=== PATIENT | male | born 1935 | race Caucasian/White ===

== ENCOUNTER 2019-10-12 18:39 | Inpatient (IN) | payer MEDICARE ==
[~2019-10-12 18:39] MED LIST: Iopamidol-370 76% 500 ML 1 ML ONE
[2019-10-12 20:27] LABS: Bacteria/HPF None Seen HPF (None Seen); Bilirubin Negative (Negative); Blood, Urine Negative (Negative); Clarity Clear (Clear); Glucose, Urine (Dipstick) Normal (Negative); Leukocyte Negative Leu/uL (Negative); Nitrite Negative (Negative); Protein, Urine (Dipstick) 50 mg/dL (Neg-Trace); RBC/HPF 0-3 HPF (0-3); Squamous Epithelial None Seen HPF (0-3); Urobilinogen Normal mg/dL (Less than 2); WBC/HPF 0-3 HPF (0-3)
[2019-10-12 20:37] LABS: #Eosinphils 0.2 thou/uL (0.0-0.7); #Lymphocytes 1.5 thou/uL (1.20-3.40); #Monocytes 0.9 thou/uL (0.11-0.59); #Neutrophils 8.5 thou/uL (1.40-6.50); %Basophils 0.2 % (0.0-1.0); %Eosinophils 2.2 % (0.0-10.0); %Lymphocytes 13.5 % (21.0-51.0); %Monocytes 7.7 % (0.0-10.0); %Neutrophils 76.4 % (42.0-75.0); Mean Corpuscular HGB CONC 35.3 g/dL (32.0-36.0); Mean Corpuscular Hemoglobin 32.2 pg (27.0-31.0); Mean Corpuscular Volume 91.3 fL (78.0-98.0); Mean Platelet Volume 6.5 fL (7.4-10.4); Platelet Count 249 thou/uL (130-400); RBC Distribution Width 11.6 % (11.5-14.5); Red Blood Cell (RBC) Count 4.04 mill/uL (4.70-6.10); White Blood Cell (WBC) Count 11.1 thou/uL (4.8-10.8)
[2019-10-12 21:00] LABS: ALT (SGPT) 12 U/L (8-55); AST (SGOT) 23 U/L (5-34); Albumin 4.4 g/dL (3.4-4.8); Alkaline Phosphatase 78 U/L (40-110); Anion Gap 12 mmol/L (10-20); BUN (Urea Nitrogen) 25 mg/dL (8.4-25.7); Bilirubin, Total 0.4 mg/dL (0.2-1.2); Calc. Creatinine Clearance 0 mL/min (70-130); Calcium 10.2 mg/dL (7.8-10.44); Carbon Dioxide 24 mmol/L (23-31); Chloride 103 mmol/L (98-107); Estimated GFR-MDRD 38; Globulin 3.4 g/dL (2.4-3.5); Glucose 109 mg/dL (83-110); Lipase 37 U/L (8-78); Potassium 4.1 mmol/L (3.5-5.1); Protein, Total 7.8 g/dL (5.8-8.1); Sodium 135 mmol/L (136-145)
[2019-10-12] MEDS ORDERED: Ondansetron PF 4 MG/2 ML Vial ONE ×2 (21:16→21:26)
[2019-10-12] MEDS ORDERED: Morphine 4 MG/ML VIAL ONE (21:16)
--- NOTE | 2019-10-12 21:47 | CT ---
CT OF THE ABDOMEN AND PELVIS WITH IV CONTRAST INDICATION: 84-year-old male with abdominal pain, nausea, vomiting and diarrhea COMPARISON: None FINDINGS: ABDOMEN: Lung bases: Clear Liver: There is a nodular contour to the liver suspicious for changes of cirrhosis Gallbladder: There are layered gallstones within a mildly contracted gallbladder Pancreas: Normal. Adrenal glands: Normal. Spleen: Normal. Kidneys and ureters: Normal. No hydronephrosis. Vasculature: There are moderate vascular calcifications seen involving the visualized vasculature. Lymph nodes:No lymphadenopathy. Free fluid in abdomen:No free fluid is evident. PELVIS: Small and large bowel: There is colonic diverticula and wall thickening involving the sigmoid colon. No drainable fluid collection is evident. Appendix:Not demonstrated Bladder: Normal. Rectal and perirectal soft tissues:Normal. Reproductive structures: Prostate is mildly enlarged measuring 4.9 cm. Free fluid in pelvis: No free fluid is evident. Lymphadenopathy pelvis: No lymphadenopathy is evident. Osseous structures: There are scattered sclerotic lesions involving the lumbar spine and pelvis suspi cious for osseous metastatic disease. There is scattered degenerative and osteoarthritic changes. Soft tissues:Normal. IMPRESSION: 1. Noncomplicated sigmoid colonic diverticulitis. Recommend appropriate colonic screening after mian ment of the patient's acute symptoms. 2. Numerous scattered small sclerotic lesions involving the lumbar spine and pelvis. The largest is s een within the right acetabulum measuring 9 mm. Whole body bone scan is recommended. Metastatic disease of the osseous structures is of concern. 3. Nodular contour of the liver suspicious for cirrhosis. 4. Cholelithiasis. 5. Prostate enlargement
[2019-10-12] MEDS ORDERED: Piperacillin/Tazobactam 3.375 GM VIAL ONE (22:56)
[2019-10-13] MEDS ORDERED: Dextrose 5 %-0.45 % NaCl 1,000 ML IV SCH (02:15)
[2019-10-13] MEDS ORDERED: Acetaminophen 325 MG TAB PO PRN ×2 (02:30→09:42)
[2019-10-13] MEDS ORDERED: Ondansetron PF 4 MG/2 ML Vial IVP PRN (02:30)
[2019-10-13] MEDS ORDERED: Ondansetron ODT 4 MG TAB SL PRN (02:30)
[2019-10-13] MEDS ORDERED: HYDROcodone/Acetaminophen 5/325 mg Tablet PO PRN ×2 (02:30)
[2019-10-13] MEDS ORDERED: Morphine 2 MG/ML SYRINGE SLOW IVP PRN (02:31)
[2019-10-13] MEDS: metroNIDAZOLE 500 MG in Premix Bag 1 BAG IVPB SCH ×3 (05:06→21:06)
[2019-10-13] MEDS: Cefepime 2 GM in Sodium Chloride 0.9% 100 ML IVPB SCH ×2 (07:45→20:16)
[2019-10-13] MEDS: Sodium Chloride 0.9% 1,000 ML IV SCH ×2 (10:05→20:16)
[2019-10-13] MEDS ORDERED: Iopamidol-370 76% 500 ML 1 ML ONE (11:20)
--- NOTE | 2019-10-13 11:56 | HP ---
PRIMARY CARE PROVIDER: None. CHIEF COMPLAINT: Abdominal pain. HISTORY OF PRESENT ILLNESS: Mr. Uriarte is a pleasant 84-year-old gentleman, who was seen at [facility] on October 13, 2019. He reports that he has had pain in the left lower side of the abdomen for 10 years. He was diagnosed with diverticulitis. He reports occasional flare-ups of the pain. He describes chronic pain with superimposed pain during acute flare-ups. He reports that he was self medicating with ampicillin. He reports feeling warm. The pain appears to be sharp, 10/10 at its worst, nonradiating. Yesterday, he was nauseous, but did not vomit. He also reports feeling lightheaded. He reports one episode of loose stools yesterday morning. He presented to the emergency room because of the above symptoms. REVIEW OF SYSTEMS: All systems were reviewed and found to be negative except for the pertinent positives mentioned above. PAST MEDICAL HISTORY: Coronary artery disease, diverticulitis. PAST SURGICAL HISTORY: Aortic valve surgery and coronary artery bypass graft x2. SOCIAL HISTORY: The patient denies tobacco use, alcohol use, or recreational drug use. FAMILY HISTORY: No family history of premature coronary artery disease. ALLERGIES: ANTIHISTAMINES. CURRENT MEDICATIONS: None. PHYSICAL EXAMINATION: GENERAL: On examination, Mr. Uriarte is awake and alert, not in acute distress. VITAL SIGNS: Blood pressure is 127/67, pulse 83, respiratory rate 18, and oxygen saturation 93% on room air. He is afebrile. EYES: No scleral icterus, no conjunctival pallor. ENT: Dry mucosal membranes. No oropharyngeal erythema or exudates. NECK: Supple, nontender, trachea is midline. RESPIRATORY: Accessory muscles of breathing are not active. Chest wall movements are symmetric bilaterally. LUNGS: Clear to auscultation without wheeze, rhonchi, or crepitations. CARDIOVASCULAR: S1 and S2 are heard, regular. Peripheral pulses palpable. ABDOMEN: Soft, nontender, bowel sounds are heard. NEUROLOGIC: Cranial nerves 2 through 12 are intact. SKIN: No rashes. LYMPHATIC: No cervical lymphadenopathy. PSYCHIATRIC: Normal mood, normal affect, the patient is oriented to person, place, and time. LABORATORY DATA: Mr. Uriarte's labs and investigations were reviewed. He has leukocytosis with 11,100 white cells, of which 76% are neutrophils. He has normocytic anemia with hemoglobin of 13, normal platelet count, mildly decreased sodium of 135, elevated creatinine of 1.75, otherwise normal comprehensive metabolic profile, normal lipase, and urinalysis that is positive for protein. He had CT scan of the abdomen and pelvis, which showed noncomplicated sigmoid colonic diverticulitis. He had numerous scattered small sclerotic lesions involving the lumbar spine and pelvis. He had nodular contour of the liver suspicious for cirrhosis. He had prostate enlargement and cholelithiasis. ASSESSMENT AND PLAN: Mr. Uriarte is a pleasant 84-year-old gentleman, who was seen at [facility] on October 13, 2019. His problem list includes: 1. Diverticulitis: Mr. Uriarte is presenting with diverticulitis on the sigmoid colon, uncomplicated. He has been started on cefepime and metronidazole, which I will continue. We will also consult Gastroenterology Service for opinion and help with management. 2. Sclerotic bone lesions: Etiology is unclear. He does have an enlarged prostate. We will check PSA level. Gastroenterology Service also being consulted in case Mr. Uriarte needs colonoscopy. 3. Chronic kidney disease: The patient appears to have chronic kidney disease. However, he also appears dehydrated. We will provide IV hydration and recheck his creatinine. 4. Coronary artery disease: Appears to be stable, the patient does not have any chest pain. Many thanks for allowing me to participate in Mr. Uriarte's care. Please feel free to contact me with any questions or concerns. LEVEL OF RISK: Moderate. LEVEL OF COMPLEXITY: Moderate. Job ID: [id number]
[2019-10-13] MEDS: HYDROcodone/Acetaminophen 5/325 mg Tablet PO PRN ×2 (13:15→17:43)
[2019-10-13] MEDS: Heparin 5,000 UNITS/ML VIAL SC SCH ×2 (14:51→20:18)
--- NOTE | 2019-10-13 17:26 | CON ---
DATE OF CONSULTATION: 10/13/2019 REQUESTING PHYSICIAN: Chip Farmer MD REASON FOR CONSULTATION: Diverticulitis. HISTORY OF PRESENT ILLNESS: Akil Uriarte is a very pleasant 84-year-old man with a history of aortic valve replacement and coronary artery bypass graft. He also reports a history of recurrent diverticulitis episodes through the years. He says that about seven or eight years ago he underwent colonoscopy elsewhere with findings of severe diverticular disease, and actually had surgical consultation recommended even at that time. The patient deferred this, and did well for several years, but now for the past few years, he reports he has been having chronic intermittent episodes of left lower quadrant pain. This typically will occur for just one or two days at a time. He will manage it at home by going on a liquid diet and sometimes self treat with ampicillin. The pain has never gotten really severe until this episode. He says that about 3 days ago, he started again having significant left lower quadrant pain, but this escalated and started to involve the whole lower abdomen. He started having low-grade fevers at home and then had onset of nausea as well. This prompted his presentation and admission last night. CT scan demonstrated uncomplicated sigmoid diverticulitis. There were also multiple sclerotic lesions in the lumbar spine and pelvis of indeterminate origin but worrisome for possible metastatic disease. Prostate is enlarged and PSA is elevated to 48.68. He has been receiving IV cefepime and metronidazole on the floor. Abdominal pain is improving a bit and nausea has resolved. For now, he is tolerating a liquid diet. REVIEW OF SYSTEMS: Full review of systems including constitutional, head, eyes, ears, nose, throat, GI, , cardiovascular, respiratory, musculoskeletal, and neurologic systems are negative except as noted in the HPI. PAST MEDICAL HISTORY: Coronary artery disease, CABG x2, aortic valve replacement with porcine valve, recurrent diverticulitis, and last colonoscopy 7 to 8 years ago showing diverticular disease, performed elsewhere. ALLERGIES: ANTIHISTAMINE. OUTPATIENT MEDICATIONS: Florastor. FAMILY HISTORY: No known family history of GI malignancy. SOCIAL HISTORY: No tobacco, alcohol, or drug use. PHYSICAL EXAMINATION: VITAL SIGNS: Temperature 100.0 degrees Fahrenheit, pulse 91, blood pressure 135/68, and 93% oxygen saturation on room air. GENERAL: An 84-year-old man, sitting up in bed comfortably, in no distress. SKIN: No jaundice. No rashes were palpable. HEENT: Eyes, no scleral icterus. Extraocular movements intact. ENT, mucous membranes moist. No oral lesions. LYMPH: No submandibular or supraclavicular lymphadenopathy. Thyroid, nontender to palpation. HEART: Regular rate and rhythm. LUNGS: Clear to auscultation bilaterally. ABDOMEN: Bowel sounds are present. The abdomen is soft. Tender to palpation in the lower abdomen, but no guarding or rebound tenderness. EXTREMITIES: No peripheral edema. VESSELS: Radial pulses 2+ bilaterally. NEURO: Cranial nerves 2 through 12 intact bilaterally. No focal deficits. LABORATORY STUDIES: WBC 11.1, hemoglobin 13.0, and platelets 249. BUN 25 and creatinine 1.75. LFTs all normal with total bilirubin 0.4, alkaline phosphatase 78, AST 23, ALT 12, albumin 4.4, lipase only 37, and calcium 10.2. Urinalysis negative. PSA is elevated to 48.68. IMAGING STUDIES: CT of the abdomen and pelvis demonstrated uncomplicated sigmoid diverticulitis with diverticula seen in this area as well as a wall thickening. There is no evidence of any abscess or free fluid. There are multiple sclerotic lesions in the lumbar spine and pelvis suspicious for osseous metastatic disease. Prostate is enlarged to 4.9 cm. There is cholelithiasis as well as a nodular contour to the liver. ASSESSMENT AND PLAN: 1. Sigmoid diverticulitis, recurrent, uncomplicated. The patient was told that he had severe diverticular disease even 7 to 8 years ago at the time of his last colonoscopy elsewhere. His presentation at this time is consistent with a more severe yet uncomplicated attack. Agree with continuing the IV antibiotics for now. Diet can be advanced as he tolerates as symptoms improve. Anticipate, he will probably need a seven-day total course of antibiotics. I discussed with the patient that he will need a followup colonoscopy on an outpatient basis, about 1 month after this flare is resolved. We will get this scheduled to my office. 2. Elevated PSA. 3. Sclerotic bone lesions to the lumbar spine and pelvis. These findings are somewhat concerning for possible prostate malignancy. His brother had prostate cancer. This is all incidental to his acute presentation. I would recommend urologic consultation or referral for this. Thank you for the consultation. Please call anytime with questions or concerns. Job ID: [id number]
--- NOTE | 2019-10-13 23:01 | CT ---
CT OF THE CHEST WITH IV CONTRAST INDICATION: Evaluate for malignancy COMPARISON: CT the abdomen and pelvis with contrast dated October 12, 2019 FINDINGS: CHEST: Lungs: No suspicious pulmonary nodule is evident. There is some mild peripheral interstitial fibrotic change present. There is subsegmental volume loss within both lower lobes. There is mild bronchiectasis within both lower lobes. Pleural space: There are calcified pleural plaques seen within the left hemithorax which may be rela mono to prior pleurodesis. Mediastinum: Few lymph nodes are seen within the anterior mediastinum. No pathologically enlarged. Th ere is a precarinal lymph node measuring 1.5 cm. There is subcarinal lymph node measuring 1.1 cm. There is an aortic valvular prosthesis. Upper abdomen:Nodular contour to the liver. Cholelithiasis. Osseous structures: There are scattered sclerotic lesions seen within the thoracic and lumbar spine. Small sclerotic lesion seen within posterior right sixth rib on image 22 series 2 There is scattered degenerative and osteoarthritic changes. Soft tissues:Normal. IMPRESSION: 1. No evidence of pulmonary metastatic disease or primary lung malignancy. 2. Nonspecific mildly prominent middle mediastinal lymph nodes. 3. Sclerotic lesions of the thoracolumbar spine and right sixth rib remain suspicious for osseous met astatic disease. Whole body bone scan is recommended for additional characterization. 4. Mild peripheral interstitial fibrosis of the lungs with mild bronchiectasis. Findings may reflect sequela of underlying interstitial lung disease. 5. Calcified pleural plaques the left hemithorax may be related to prior pleurodesis. Asbestos-relate d pleural disease is felt to be less likely.
[2019-10-14] MEDS: metroNIDAZOLE 500 MG in Premix Bag 1 BAG IVPB SCH ×3 (05:16→21:38)
[2019-10-14] MEDS: Sodium Chloride 0.9% 1,000 ML IV SCH ×2 (05:16→16:15)
[2019-10-14 06:12] LABS: #Eosinphils 0.1 thou/uL (0.0-0.7); #Monocytes 0.8 thou/uL (0.11-0.59); #Neutrophils 12.3 thou/uL (1.40-6.50); %Eosinophils 0.6 % (0.0-10.0); %Lymphocytes 13.2 % (21.0-51.0); %Monocytes 5.4 % (0.0-10.0); %Neutrophils 80.8 % (42.0-75.0); Hemoglobin 12.4 g/dL (14.0-18.0); Mean Corpuscular HGB CONC 33.9 g/dL (32.0-36.0); Mean Corpuscular Hemoglobin 31.7 pg (27.0-31.0); Mean Corpuscular Volume 93.4 fL (78.0-98.0); Mean Platelet Volume 6.9 fL (7.4-10.4); Platelet Count 221 thou/uL (130-400); RBC Distribution Width 11.9 % (11.5-14.5); Red Blood Cell (RBC) Count 3.92 mill/uL (4.70-6.10); White Blood Cell (WBC) Count 15.2 thou/uL (4.8-10.8)
[2019-10-14 06:29] LABS: Anion Gap 12 mmol/L (10-20); BUN (Urea Nitrogen) 22 mg/dL (8.4-25.7); Calc. Creatinine Clearance 31 mL/min (70-130); Carbon Dioxide 19 mmol/L (23-31); Chloride 108 mmol/L (98-107); Estimated GFR-MDRD 37; Glucose 92 mg/dL (83-110); Potassium 4.2 mmol/L (3.5-5.1); Sodium 135 mmol/L (136-145)
[2019-10-14] MEDS: Heparin 5,000 UNITS/ML VIAL SC SCH ×2 (08:18→15:07)
[2019-10-14] MEDS: Cefepime 2 GM in Sodium Chloride 0.9% 100 ML IVPB SCH ×2 (08:18→20:49)
--- NOTE | 2019-10-14 10:04 | PRG ---
DATE OF SERVICE: 10/14/2019 SUBJECTIVE: Mr. Uriarte is feeling quite a bit better. He still has some soreness to the left side of the abdomen, but the severe pain has gone. No nausea. He is tolerating his diet. OBJECTIVE: VITAL SIGNS: Temperature 98.9, pulse 89, blood pressure 127/66, and 93% oxygen saturation on room air. GENERAL: No acute distress. HEART: Regular rate and rhythm. LUNGS: Clear to auscultation bilaterally. ABDOMEN: Tender to palpation in the left lower quadrant, but no guarding or rebound tenderness. EXTREMITIES: No peripheral edema. LABORATORY STUDIES: WBC is 15.2, hemoglobin 12.4, platelets 221. Sodium 135, potassium 4.2, BUN 22, creatinine 1.78, and PSA 48.68. ASSESSMENT AND PLAN: 1. Sigmoid diverticulitis, uncomplicated, recurrent. The patient has had some clinical improvement over the past day on the IV antibiotics. He is tolerating his diet. From a diverticulitis standpoint, if he is continuing to feel well and does well with lunch, he could potentially be discharged from the hospital later today or tomorrow. We would recommend he complete a 7-day course of oral antibiotics, switch to ciprofloxacin and Flagyl p.o. on hospital discharge. 2. Elevated PSA. 3. Sclerotic bone lesions. This is somewhat concerning for prostate cancer. I see a nuclear medicine bone scan is in process. Further workup per the primary service. Please call back anytime with questions or concerns. We will plan to see him for outpatient colonoscopy in the next 4 to 6 weeks. Job ID: [id number]
--- NOTE | 2019-10-14 15:05 | NM ---
Radionucleotide bone scan HISTORY: Sclerotic bone lesions. Metastatic disease. FINDINGS: Subtle areas of slightly increased uptake involves the lateral aspect of the left eighth ri b and the T7 vertebral body. Subtle sclerotic lesions on recent corresponding CT scan. Focal area of increased uptake also overlies the right side of the skull. IMPRESSION: Metastatic involvement of the skull, left ribs, and thoracic spine. Other lesions seen on recent CT scans are not demonstrable on the current bone scan.
[2019-10-14] MEDS: Ondansetron PF 4 MG/2 ML Vial SLOW IVP PRN (17:09)
--- NOTE | 2019-10-14 17:39 | PDOC.HOSPP ---
- Subjective Encounter Date: 10/14/19 Encounter Time: 10:20 Subjective: Pt seen for followup re: diverticulitis. Feels better. No chest pain or shortness of breath. Tolerating diet. - Objective Vital Signs & Weight: Vital Signs (12 hours) Temp Pulse Resp BP Pulse Ox 10/14/19 15:58 99.3 F 104 H 20 150/74 H 91 L 10/14/19 11:29 98.6 F 93 20 113/58 L 91 L 10/14/19 08:00 93 L 10/14/19 07:25 98.9 F 89 20 127/66 93 L Weight Admit Weight 150 lb Weight 150 lb I&O: 10/13/19 10/14/19 10/15/19 06:59 06:59 06:59 Intake Total 2655 Output Total 500 Balance 2155 Result Diagrams: 10/14/19 05:41 10/14/19 05:41 Additional Labs: Labs and MARs reviewed by me Hospitalist ROS - Review of Systems Cardiovascular: denies: chest pain, palpitations, orthopnea, paroxysmal noc. dyspnea, edema, light headedness Gastrointestinal: denies: nausea, vomiting, abdominal pain, diarrhea, constipation, melena, hematochezia - Medication Medications: Active Medications Generic Name Dose Route Start Last Admin Trade Name Freq PRN Reason Stop Dose Admin Hydrocodone Bitart/Acetaminophen 1 tab 10/13/19 09:42 10/13/19 17:43 [place] 5/325 PO 1 tab Q4H PRN Administration Moderate Pain (4-6) Heparin Sodium (Porcine) 5,000 units 10/13/19 15:00 10/14/19 15:07 Heparin SC 5,000 units TID RICHARD Administration Cefepime HCl 2 gm/ Sodium 100 mls @ 200 mls/hr 10/13/19 09:00 10/14/19 08:18 Chloride IVPB 100 mls Q12HR RICHARD Administration Metronidazole 500 mg/ Device 100 mls @ 100 mls/hr 10/13/19 06:00 10/14/19 15: 07 IVPB 100 mls Q8HR RICHARD Administration Ondansetron HCl 4 mg 10/14/19 16:50 10/14/19 17:09 Zofran SLOW IVP 4 mg Q6H PRN Administration Nausea/Vomiting Sodium Chloride 10 ml 10/13/19 09:00 10/14/19 08:19 Flush - Normal Saline IVF Not Given Q12HR RICHARD - Exam General Appearance: NAD Eye: anicteric sclera ENT: moist mucosa Neck: supple Heart: RRR, no rubs Respiratory: CTAB, no wheezes Gastrointestinal: soft, non-tender Extremities: no cyanosis Musculoskeletal: normal tone, normal strength Psychiatric: normal affect, normal behavior Hosp A/P (1) Diverticulitis Code(s): K57.92 - DVTRCLI OF INTEST, PART UNSP, W/O PERF OR ABSCESS W/O BLEED Status: Acute (2) Prostate enlargement Code(s): N40.0 - BENIGN PROSTATIC HYPERPLASIA WITHOUT LOWER URINRY TRACT SYMP Status: Acute (3) Bone lesion Code(s): M89.9 - DISORDER OF BONE, UNSPECIFIED Status: Acute (4) Elevated PSA Code(s): R97.20 - ELEVATED PROSTATE SPECIFIC ANTIGEN [PSA] Status: Acute (5) Chronic kidney disease, stage 3 Code(s): N18.3 - CHRONIC KIDNEY DISEASE, STAGE 3 (MODERATE) Status: Chronic (6) CAD (coronary artery disease) Code(s): I25.10 - ATHSCL HEART DISEASE OF [place] CORONARY ARTERY W/O ANG PCTRS Status: Chronic - Plan continue antibiotics, out of bed/ambulate Pt improving in terms of diverticulitis. Pt's presentation is concerning re: metastatic prostate cancer with bome metastases. Consult urology. CAD and CKD stable.
--- NOTE | 2019-10-14 19:49 | CON ---
DATE OF CONSULTATION: 10/14/2019 REASON FOR CONSULTATION: Possible prostate cancer. HISTORY: Mr. Uriarte is an 84-year-old gentleman, who presented to the hospital at [place] on 10/12/2019, for diverticulitis. As part of his workup, CT scan was performed. This demonstrated some sclerotic lesions. He is now undergoing bone scan, lesions are consistent with prostate cancer. The patient had a PSA test performed and PSA result is 48.7. He denies any prior urologic history. He has not had PSA or prostate testing in several years. PAST MEDICAL HISTORY: Coronary artery disease, history of diverticulitis. PAST SURGICAL HISTORY: Aortic valve surgery, coronary artery bypass graft. SOCIAL HISTORY: He is a nonsmoker. Denies excessive alcohol use. REVIEW OF SYSTEMS: RESPIRATORY: Denies any shortness of breath or wheezing. CARDIOVASCULAR: Denies chest pain or palpitations. GASTROINTESTINAL: Presented with abdominal pain, but this is improving. GENERAL: Fever has improved since admission. UROLOGIC: He has some intermittent weak stream and some postvoid dribbling, but otherwise very little in the way of voiding symptoms. PHYSICAL EXAMINATION: GENERAL: He is awake and alert. He appears younger than his stated age. VITAL SIGNS: Blood pressure 128/82, pulse 82, respiratory rate 18, and O2 saturation 93% on room air. HEENT: Normocephalic and atraumatic. NECK: Supple. No masses. CHEST: Clear to auscultation. CARDIOVASCULAR: No murmurs auscultated. EXTREMITIES: No edema. RECTUM: Digital rectal exam, 40 g prostate. Induration bilaterally. IMPRESSION: Elevated PSA to 48.7, lesions on CT scan consistent with bone metastasis, and bone scan pending. I have recommended a prostate needle biopsy. This can be performed in our office to make arrangements for him to come to the office for biopsy after his discharge from the hospital. If pathologic confirmation of prostate cancer is confirmed, then initiation of hormone therapy will be recommended. PLAN: We will arrange for a prostate needle biopsy in our office after discharge. Job ID: [id number]
[2019-10-14] MEDS ORDERED: Lidocaine 2% Viscous Solution 10 ML, Aluminum & Magnesium Hydroxide 30 ML SSW SCH (20:30)
[2019-10-14] MEDS ORDERED: Famotidine/PF 20 mg/2ml Vial SLOW IVP SCH (21:00)
[2019-10-15] MEDS ORDERED: guaiFENesin 200 MG TAB PO PRN (01:22)
[2019-10-15] MEDS: metroNIDAZOLE 500 MG in Premix Bag 1 BAG IVPB SCH ×3 (05:23→21:08)
[2019-10-15 05:59] LABS: #Lymphocytes 0.6 thou/uL (1.20-3.40); #Monocytes 0.8 thou/uL (0.11-0.59); #Neutrophils 18.6 thou/uL (1.40-6.50); %Neutrophils 93.1 % (42.0-75.0); Hemoglobin 11.5 g/dL (14.0-18.0); Mean Corpuscular HGB CONC 34.5 g/dL (32.0-36.0); Mean Corpuscular Volume 92.7 fL (78.0-98.0); Mean Platelet Volume 6.8 fL (7.4-10.4); Platelet Count 222 thou/uL (130-400); RBC Distribution Width 11.8 % (11.5-14.5); Red Blood Cell (RBC) Count 3.58 mill/uL (4.70-6.10); White Blood Cell (WBC) Count 19.9 thou/uL (4.8-10.8)
[2019-10-15 06:18] LABS: Anion Gap 17 mmol/L (10-20); BUN (Urea Nitrogen) 32 mg/dL (8.4-25.7); Calc. Creatinine Clearance 28 mL/min (70-130); Calcium 8.6 mg/dL (7.8-10.44); Carbon Dioxide 17 mmol/L (23-31); Chloride 106 mmol/L (98-107); Estimated GFR-MDRD 32; Glucose 141 mg/dL (83-110); Potassium 4.7 mmol/L (3.5-5.1); Sodium 135 mmol/L (136-145)
[2019-10-15 07:53] VITALS: BP 135/71
--- NOTE | 2019-10-15 07:59 | RAD ---
Portable upright frontal chest radiograph: 10/15/2019 COMPARISON: None HISTORY: Cough and shortness of breath FINDINGS: Midline sternotomy wires and mediastinal clips are present. No pneumothorax is seen. Biapic al pleural thickening and associated calcification seen. Pulmonary vascular congestion. There is extensive interstitial and alveolar opacity in bilateral perihilar regions and both lung bas es with small associated bilateral pleural effusions. IMPRESSION: Small bilateral pleural effusions with pulmonary vascular congestion and bilateral perihi lar/bibasilar interstitial and alveolar opacity. Findings favor pulmonary edema. Infection or aspiration cannot be excluded. Follow-up to resolution advised.
[2019-10-15] MEDS: Cefepime 2 GM in Sodium Chloride 0.9% 100 ML IVPB SCH (08:11)
--- NOTE | 2019-10-15 09:11 | PRG ---
DATE OF SERVICE: 10/15/2019 SUBJECTIVE: The patient has not had fever, but overall does not feel much better. OBJECTIVE: VITAL SIGNS: Temperature 97.5, pulse 106, O2 saturation 90%, and blood pressure 135/71. ABDOMEN: Soft, nontender. No palpable masses. Nuclear medicine scan positive for bone metastases. IMPRESSION: Presumptive prostate cancer, but he needs biopsy before Lupron can be given for hormone therapy. He will be started on Casodex today. He will need a followup appointment for biopsy and will need to be on Casodex for at least a week before Lupron can be safely given. PLAN: 1. Prostate biopsy after discharge in office. 2. Begin Casodex. Job ID: [id number]
[2019-10-15] MEDS ORDERED: Furosemide 40 MG/4 ML VIAL ONE (09:18)
[2019-10-15] MEDS ORDERED: Furosemide 40 MG/4 ML VIAL SLOW IVP SCH (09:30)
[2019-10-15] MEDS ORDERED: Polyethylene Glycol 3350 17 GM Packet PO PRN (09:36)
[2019-10-15] MEDS ORDERED: Pharmacy to Dose: CEFEPIME IVPB PRN (10:13)
[2019-10-15 11:53] LABS: Troponin I 9.307 ng/mL (< 0.028)
[2019-10-15] MEDS ORDERED: Furosemide 100 MG/10 ML VIAL SLOW IVP SCH ×2 (13:30→22:00)
[2019-10-15] MEDS: Bicalutamide 50 MG TAB PO SCH (13:36)
[2019-10-15] MEDS ORDERED: Nitroglycerin 50 MG/250 ML BOT 250 ML ONE (14:43)
[2019-10-15] MEDS ORDERED: Aspirin 300 MG Suppository PR SCH (15:00)
[2019-10-15] MEDS ORDERED: Nitroglycerin 50 MG/250 ML BOT 250 ML IVPB SCH (15:00)
[2019-10-15] MEDS ORDERED: Enoxaparin Sodium 80 MG/0.8 ML SYRINGE SC SCH (15:00)
--- NOTE | 2019-10-15 17:14 | PRG ---
DATE OF SERVICE: 10/15/2019 SUBJECTIVE: Yesterday evening, Mr. Uriarte started having a lot of shortness of breath, cough. This morning, he was hypoxic and did not improve with diuretics. He was moved to the ICU and is now on BiPAP. Echocardiogram was performed and that report is not yet back. He was seen by Dr. Nguyen. There is concern for progressive aortic stenosis. His troponin is elevated to 9. The patient denies any significant abdominal pain at this time and had been tolerating his diet prior to being placed on BiPAP. OBJECTIVE: VITAL SIGNS: Temperature 97.5, heart rate 122, blood pressure 159/96, and 95% oxygen saturation on BiPAP. GENERAL: In mild respiratory distress, tolerating BiPAP. HEART: Regular tachycardia. LUNGS: Bibasilar crackles. He is tachypneic. ABDOMEN: Bowel sounds present. Soft and nontender to palpation. EXTREMITIES: No peripheral edema. LABORATORY STUDIES: WBC up to 19.9, hemoglobin 11.5, and platelets 222. Sodium 135, potassium 4.7, BUN 32, creatinine 1.99, and glucose 141. Troponin 9.3 and BNP 3605.4. ASSESSMENT AND PLAN: 1. Acute recurrent sigmoid diverticulitis, clinically improved. I would continue the antibiotics for a seven-day course. He will stay on IV antibiotics while inpatient. 2. Probable metastatic prostate cancer. The patient's bone scan showed osseous lesions throughout thoracic spine as well as skull. Note that, Urology has recommended prostate biopsy in an outpatient basis. 3. Acute congestive heart failure. 4. Elevated troponin. 5. Pulmonary edema, now on BiPAP. This is a new development over the past less than 24 hours. Follow up Cardiology recommendations. Due to this event, we may not necessarily be able to do followup colonoscopy in 1 month. GI will follow from a distance. Please call anytime with questions or concerns. Job ID: [id number]
[2019-10-15 17:27] LABS: Troponin I 11.462 ng/mL (< 0.028)
--- NOTE | 2019-10-15 17:28 | CON ---
DATE OF CONSULTATION: 10/15/2019 REASON FOR CONSULTATION: Congestive heart failure, left bundle-branch block, diverticulitis. HISTORY OF PRESENT ILLNESS: Mr. Uriarte is an 84-year-old gentleman. He came to the hospital complaining of abdominal discomfort and was found to have diverticulitis. The patient has been receiving antibiotics and fluid here. The patient started having increasing amounts of difficulty breathing last night. Finally, he came here to the intensive care unit after chest x-ray shows pulmonary edema. He has been transferred to the cardiac care unit. The patient remains critically ill here despite BiPAP and other medicines as will be outlined below. The patient is unable to give much history now. He has a BiPAP. He can only tell us with brief responses, if he tries to talk he becomes very short of breath and panicky. Therefore, the information is received from the chart as well as the brief answers from this gentleman, yes or no answers mostly. The patient is currently not having chest pain, but he is very short of breath. PAST MEDICAL HISTORY: 1. He had recurrent diverticulitis. 2. He has had bypass surgery and valve replacement, presumably aortic valve replacement in 2002 that was done in [place]. He indicates the last time he saw a high school library media specialist was several years ago. SOCIAL HISTORY: No alcohol or tobacco abuse. HOME MEDICATION: The only thing listed was Florastor. The patient is really unable to give any other history about that now. REVIEW OF SYSTEMS: Otherwise unreliable except difficulty breathing. He really cannot give a history currently. FAMILY HISTORY: No family history of premature coronary artery disease according to the chart. MEDICATIONS: According to the initial H and P, none. PHYSICAL EXAMINATION: GENERAL: This is a critically ill-appearing elderly gentleman. He is sitting up in about at 50-degree angle in order to breathe adequately. He has a BiPAP machine on. VITAL SIGNS: His blood pressure is 133/79, pulse 117 to 118 and sinus rhythm. HEENT: Eyes, sclerae are nonicteric. Mouth, mucous membranes are moist. NECK: Supple. No lymphadenopathy. LUNGS: He has rales at the mid lung mack. Expiratory wheezing. His respiratory rate has increased. CARDIAC: Normal S1, normal S2. He is tachycardic. I do not hear murmur, rub, or gallop. Heart sounds are somewhat distant. ABDOMEN: Soft and nontender. EXTREMITIES: Warm and dry. No clubbing or cyanosis. There is no significant edema. DIAGNOSTIC STUDIES: EKG reveals sinus tachycardia, left bundle-branch block. Chest x-ray shows severe pulmonary edema. PERTINENT LABORATORY DATA: Troponin is 9.307. BNP 3605. Creatinine is 1.99 with an estimated GFR of 32. ASSESSMENT: 1. Pulmonary edema. 2. Rtk-EE-tvgxrontq myocardial infarction. 3. Previous bypass surgery. 4. Previous valve replacement. 5. 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 6. Left bundle branch block, unknown chronicity. 7. Diverticulitis. 8. Appears to have metastatic prostate cancer based on increased PSA and bone scan. PLAN: 1. Continue intravenous diuretics. 2. We will start intravenous nitrates as he is not responding much to the diuretics. 3. Lovenox. 4. Echocardiogram. 5. Prognosis, guarded. 6. Aspirin will be given. The nurse is not talking to him now, but the possibility that he maybe intolerant or allergic to aspirin, we will check that prior to administration of aspirin. Job ID: [id number] [facility]
--- NOTE | 2019-10-15 18:24 | PDOC.HOSPP ---
- Subjective Encounter Date: 10/15/19 Encounter Time: 18:22 Subjective: Pt seen for followup re: NSTEMI. States he feels slightly better after starting BiPAP. - Objective Vital Signs & Weight: Vital Signs (12 hours) Temp Pulse Resp BP Pulse Ox 10/15/19 15:11 115 H 10/15/19 13:19 110 H 10/15/19 12:00 114 H 92 L 10/15/19 11:00 109 H 38 H 94 L 10/15/19 08:00 30 L 10/15/19 07:52 97.5 F L 106 H 20 135/71 90 L Weight Admit Weight 150 lb Weight 150 lb Most Recent Monitor Data Heart Rate from ECG 102 NIBP 90/60 NIBP BP-Mean 70 Respiration from ECG 29 SpO2 90 I&O: 10/14/19 10/15/19 10/16/19 06:59 06:59 06:59 Intake Total 2655 2610 400 Output Total 500 1000 920 Balance 2155 1610 -520 Result Diagrams: 10/15/19 05:39 10/15/19 05:38 Additional Labs: Labs and MARs reviewed by me EKG Reviewed by me: Yes (Tele: s. tach) Hospitalist ROS - Review of Systems Respiratory: reports: shortness of breath Cardiovascular: reports: orthopnea. denies: chest pain, palpitations, paroxysmal noc. dyspnea, edema, light headedness Gastrointestinal: denies: nausea, vomiting, abdominal pain, diarrhea, constipation, melena, hematochezia - Medication Medications: Active Medications Generic Name Dose Route Start Last Admin Trade Name Freq PRN Reason Stop Dose Admin Hydrocodone Bitart/Acetaminophen 1 tab 10/13/19 09:42 10/13/19 17:43 [place] 5/325 PO 1 tab Q4H PRN Administration Moderate Pain (4-6) Albuterol/Ipratropium 3 ml 10/15/19 07:00 10/15/19 13:19 Duoneb NEB 3 ml [id number] RICHARD Administration Bicalutamide 50 mg 10/15/19 09:00 10/15/19 13:36 Casodex PO 50 mg DAILY RICHARD Administration Guaifenesin 200 mg 10/15/19 01:22 10/15/19 02:01 Organ-I Nr PO 200 mg Q4H PRN Administration Congestion Metronidazole 500 mg/ Device 100 mls @ 100 mls/hr 10/13/19 06:00 10/15/19 13: 37 IVPB 100 mls Q8HR RICHARD Administration Nitroglycerin/Dextrose 250 mls @ 20 mls/hr 10/15/19 15:00 10/15/19 15:29 Nitroglycerin 50 Mg/250 Ml Bot IVPB 250 mls INF RICHARD Administration Protocol Ondansetron HCl 4 mg 10/14/19 16:50 10/14/19 17:09 Zofran SLOW IVP 4 mg Q6H PRN Administration Nausea/Vomiting Sodium Chloride 10 ml 10/13/19 09:00 10/15/19 08:11 Flush - Normal Saline IVF 10 ml Q12HR RICHARD Administration - Exam General Appearance: NAD Eye: anicteric sclera ENT: moist mucosa Neck: supple, JVD Heart - other findings: S1, S2, tachy, reg Respiratory - other findings: Rafael crackles Gastrointestinal: soft, non-tender Musculoskeletal: no muscle wasting Psychiatric: normal affect, normal behavior Hosp A/P (1) NSTEMI (non-ST elevated myocardial infarction) Code(s): I21.4 - NON-ST ELEVATION (NSTEMI) MYOCARDIAL INFARCTION Status: Acute (2) Acute respiratory failure with hypoxia Code(s): J96.01 - ACUTE RESPIRATORY FAILURE WITH HYPOXIA Status: Acute (3) Acute pulmonary edema Code(s): J81.0 - ACUTE PULMONARY EDEMA Status: Acute (4) Diverticulitis Code(s): K57.92 - DVTRCLI OF INTEST, PART UNSP, W/O PERF OR ABSCESS W/O BLEED Status: Acute (5) Prostate enlargement Code(s): N40.0 - BENIGN PROSTATIC HYPERPLASIA WITHOUT LOWER URINRY TRACT SYMP Status: Acute (6) Bone lesion Code(s): M89.9 - DISORDER OF BONE, UNSPECIFIED Status: Acute (7) Elevated PSA Code(s): R97.20 - ELEVATED PROSTATE SPECIFIC ANTIGEN [PSA] Status: Acute (8) Chronic kidney disease, stage 3 Code(s): N18.3 - CHRONIC KIDNEY DISEASE, STAGE 3 (MODERATE) Status: Chronic (9) CAD (coronary artery disease) Code(s): I25.10 - ATHSCL HEART DISEASE OF [place] CORONARY ARTERY W/O ANG PCTRS Status: Chronic - Plan Pt in flash pulmonary edema overnight. Administer furosemide. Pt received aspirin and therapeutic Lovenox. Trend troponin. Pt to follow with urologist as outpt for prostate biopsy. Cardiology, PCCM, GI and urology following. Discussed code status. Pt is DNAR.
--- NOTE | 2019-10-15 18:26 | CON ---
DATE OF CONSULTATION: 10/15/2019 SERVICE: Pulmonary Medicine. REASON FOR CONSULT: ICU patient. HISTORY OF PRESENT ILLNESS: The patient is an 84-year-old white male with past medical history significant for severe coronary artery disease. He presented to the hospital with acute onset of abdominal discomfort that was diagnosed as diverticulitis. He has put on appropriate antibiotics and tucked in on the floor. At that location, he was given some IV fluids. He started having onset of increasing difficulty breathing yesterday. Oxygen requirements started going up to the point where today, he was breathing very heavily. I was given a dose of Lasix and had a little bit of urine output. That being said, he continues to breathe quite heavily. He was brought to the ICU and initiated on BiPAP and I was contacted at that point. He indicates that his breathing has eased up a little bit since initiating BiPAP. We got a troponin on him, which was elevated at 9, he had significant EKG abnormalities. Cardiology consultation has been placed. He denies having any current fevers or chills. He is coughing up pink-tinged phlegm. His belly pain is significantly better. He did not have any chest discomfort, palpitations. PAST MEDICAL HISTORY: 1. Coronary artery disease, extensive. 2. Hypertension. PAST SURGICAL HISTORY: 1. Aortic valve surgery. 2. Coronary artery bypass graft x2 vessels. SOCIAL HISTORY: Negative for current tobacco, alcohol, or illicit drug use. He has no exposure to chemicals, dust, asbestos, or tuberculosis. FAMILY HISTORY: Noncontributory. ALLERGIES: ANTIHISTAMINE. MEDICATIONS: List of his inpatient medications was reviewed. No specific updates were made at this time. REVIEW OF SYSTEMS: General, head, ears, eyes, nose, throat, cardiovascular, respiratory, GI, , musculoskeletal, neurologic, and skin are negative except as mentioned in the HPI. PHYSICAL EXAMINATION: VITAL SIGNS: Afebrile, pulse 106, blood pressure 135/71, respirations 20, and saturation 94%, currently on 55% FiO2 and a PEEP of 6. GENERAL: The patient is awake and alert. He is in mild respiratory distress. HEENT: Normocephalic and atraumatic. Sclerae white. Conjunctivae pink. Oral mucosa is moist without lesions. LUNGS: Decent air entry. Crackles are present. There is no prolonged expiratory phase or wheezing appreciated. HEART: Tachycardic. Regular. ABDOMEN: Soft. Nontender. Bowel sounds are positive. MUSCULOSKELETAL: No cyanosis or clubbing. There is trace pitting in bilateral lower extremities. NEUROLOGIC: Grossly nonfocal. LABORATORY DATA: WBC 19.9, hemoglobin 11.5, and platelets 222,000. Creatinine 1.99 and gently uptrending. BUN 32, bicarb 17. Troponin 9.0 and BNP 3600. PSA is elevated. Liver function studies are unremarkable. Urinalysis is negative. IMAGIN. Chest x-ray demonstrates an interstitial edema throughout bilateral lung mack. Bilateral pleural effusions and pulmonary vascular congestion are also present. 2. Bone scan demonstrates metastatic involvement of the skull, left ribs, and thoracic spine. 3. CT of the abdomen and pelvis demonstrates noncomplicated sigmoid diverticulitis. Prostate enlargement. Nodular contour of the liver suspicious for cirrhosis. 4. CT of the chest demonstrates no evidence of pulmonary metastatic disease. Mediastinal lymph nodes are prominent. Sclerotic lesions are identified. Fibrotic lung changes are present with mild bronchiectasis. ASSESSMENT: 1. Acute hypoxic respiratory failure. 2. Non-ST elevation myocardial infarction. 3. Prostate cancer, suspected. 4. Diverticulitis. 5. Severe sepsis. DISCUSSION AND PLAN: Cardiology consultation has been placed. I have titrated BiPAP at bedside. If the patient requires additional help, he will likely require invasive ventilation. He is already got a dose of Lasix. We are going to continue to diurese him through time as tolerated. Pulmonary/Critical Care will continue to follow very closely in the ICU. 70 minutes have been devoted to this patient in various activities. I personally reviewed all imaging studies and laboratory data noted within this document. For fifty percent of this time, I was interacting with the patient at the bedside or coordinating care with the care team. For the remainder of the time I was immediately available to the patient in the hospital unit. Critical care time: 30 minutes. Job ID: [id number] [facility]TD[facility]
[2019-10-15] MEDS: Famotidine/PF 20 mg/2ml Vial SLOW IVP SCH (21:08)
[2019-10-15] MEDS: HYDROcodone/Acetaminophen 5/325 mg Tablet PO PRN (23:47)
[2019-10-16 03:42] LABS: #Lymphocytes 0.7 thou/uL (1.20-3.40); #Neutrophils 17.4 thou/uL (1.40-6.50); %Basophils 0.1 % (0.0-1.0); %Lymphocytes 3.7 % (21.0-51.0); %Monocytes 5.4 % (0.0-10.0); %Neutrophils 90.7 % (42.0-75.0); Hemoglobin 12.1 g/dL (14.0-18.0); Mean Corpuscular HGB CONC 34.7 g/dL (32.0-36.0); Mean Corpuscular Hemoglobin 32.7 pg (27.0-31.0); Mean Corpuscular Volume 94.2 fL (78.0-98.0); Mean Platelet Volume 7.2 fL (7.4-10.4); Platelet Count 252 thou/uL (130-400); Red Blood Cell (RBC) Count 3.71 mill/uL (4.70-6.10); White Blood Cell (WBC) Count 19.1 thou/uL (4.8-10.8)
[2019-10-16] MEDS: Ondansetron PF 4 MG/2 ML Vial SLOW IVP PRN (03:48)
[2019-10-16 04:11] LABS: Anion Gap 16 mmol/L (10-20); BUN (Urea Nitrogen) 45 mg/dL (8.4-25.7); Calc. Creatinine Clearance 23 mL/min (70-130); Calcium 8.8 mg/dL (7.8-10.44); Carbon Dioxide 15 mmol/L (23-31); Chloride 108 mmol/L (98-107); Estimated GFR-MDRD 26; Glucose 172 mg/dL (83-110); Potassium 4.4 mmol/L (3.5-5.1); Sodium 135 mmol/L (136-145)
[2019-10-16] MEDS: HYDROcodone/Acetaminophen 5/325 mg Tablet PO PRN ×2 (04:26→20:24)
[2019-10-16] MEDS: metroNIDAZOLE 500 MG in Premix Bag 1 BAG IVPB SCH ×3 (05:54→21:41)
[2019-10-16] MEDS ORDERED: Bisacodyl 5 MG TAB PO PRN (09:46)
[2019-10-16] MEDS: Cefepime 1 GM in Sodium Chloride 0.9% 100 ML IVPB SCH (09:57)
[2019-10-16] MEDS: Aspirin 300 MG Suppository PR SCH (09:57)
[2019-10-16] MEDS ORDERED: Bisacodyl 5 MG TAB PO SCH (10:00)
[2019-10-16] MEDS: Bicalutamide 50 MG TAB PO SCH (10:02)
--- NOTE | 2019-10-16 11:08 | PRG ---
DATE OF SERVICE: 10/16/2019 SERVICE: Pulmonary Medicine. INTERVAL HISTORY: The patient is doing okay from respiratory standpoint. He is going between BiPAP and high-flow nasal cannula. He seems to be tolerating break off the BiPAP for the time being. He continues to have significant coughing and brings up phlegm that looks like pulmonary edema. He denies any current fevers or chills. There were no significant overnight events otherwise. PHYSICAL EXAMINATION: VITAL SIGNS: Afebrile, pulse 97, blood pressure 97/60, respirations 25, saturation 95% on 50% FiO2. GENERAL: The patient is awake and alert, in no apparent distress. LUNGS: Decent air entry with extensive crackling. There are a prolonged expiratory phase as well as polyphonic wheezing. Extensive rhonchi are also noted, but clear with cough. HEART: Normal rate, regular. ABDOMEN: Soft, nontender, nondistended. Bowel sounds are positive. MUSCULOSKELETAL: No cyanosis or clubbing. There is trace to 1+ pitting in the bilateral lower extremities. NEUROLOGIC: Grossly nonfocal. LABORATORY DATA: WBC 19.1, hemoglobin 12.1, and platelets 252,000. Creatinine 2.42 and gently uptrending, troponin up trending to 11.4. BUN 54, bicarb 15. Anion gap downtrending to 16. Sodium 135. Urinalysis is unremarkable. Specifically, there are no red blood cells present. IMAGING: Echocardiogram demonstrates reduced ejection fraction of 20% to 25%. 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 Moderate mitral regurgitation is present. Possibly severe aortic stenosis with severely dilated pulmonary artery pressures. ASSESSMENT: 1. Acute hypoxic respiratory failure. 2. Klg-OT-xosigyago myocardial infarction. 3. Prostate cancer, suspected. 4. Diverticulitis, on antibiotics. 5. Severe sepsis. 6. Chronic kidney disease. DISCUSSION AND PLAN: Nephrology consultation will be placed. We will need to diurese the patient down to euvolemia. I will back off his Lasix to once daily. We will continue doing BiPAP on and off over the next 24 hours. Hopefully, we will be able to wean oxygen through time as tolerated. Pulmonary/Critical Care will continue to follow along, but at this point, he needs to stay in the ICU. Job ID: [id number]
--- NOTE | 2019-10-16 14:09 | PDOC.PALCO ---
Palliative Care Consult - Consult Details Requesting Physician: Dr Goldstein Reason for Consult: assistance with communication prognosis/disease, family support Family Members Present: None - Pertinent HPI 84 year old male who presented to the emergency room 10/13 for pain related to his lower left side related to what he thought was a flareup of diverticulitis, which he was diagnosed with 10 years ago. Patient states that pain is chronic with episodes where it is more pronounced. Nausea and dizziness 10/12 but no emesis. Pain unresolved and was reported to be a 10/10, non radiating. Evaluated in the emergency room and sclerotic bone lesions were identified as well as enlarged prostate, also diverticulitis. Admitted for medical management and evaluation. During course of stay patient experienced pulmonary edema and was transferred to CCU for higher level of care. - Social History Smoking Status: Never smoker Smoking: no tobacco exposure Alcohol Use: none Drug Use History: none Living Situation: independent - Medications MAR Reviewed: Yes - Allergies Allergies/Adverse Reactions: Allergies Allergy/AdvReac Type Severity Reaction Status Date / Time Antihistamines - Alkylamine Allergy Rash Verified 10/13/19 02:20 avocado Allergy Anaphylaxis Verified 10/13/19 01:43 [place] And Derivatives Allergy Rash Verified 10/13/19 01:43 adonay Allergy Rash Verified 10/13/19 01:43 orange juice Allergy Rash Verified 10/13/19 01:43 tomato Allergy Rash Verified 10/13/19 01:43 - Subjective On bipap, labored respirations, flat affect. States pain has improved. Daughter is here from out of state but stepped out of room - ROS Constitutional: weakness Eyes: other (negative for vision disturbances) ENT: other (denies difficulity swallowing) Respiratory: shortness of breath, shortness of breath with extertion Gastrointestinal: other (denies diarrhea, nausea, vomiting) Musculoskeletal: other - Objective Vital Signs: Vital Signs - Most Recent Temp Pulse Resp BP Pulse Ox 98.6 F 115 H 24 H 135/71 94 L 10/16/19 07:00 10/16/19 13:25 10/16/19 13:25 10/15/19 07:52 10/16/19 13:25 Palliative Performance Scale: 40 - Physical Exam Constitutional: mild distress HEENT: EOMI, moist MMs, sclera anicteric Respiratory: labored respirations, tachypnea Deviation from normal: adventicious lung sounds bilaterally Cardiovascular: no significant murmur Gastrointestinal: non-tender Musculoskeletal: no cyanosis Neurology: moves all 4 limbs, no focal deficits Skin: cap refill <2 seconds, no lesions Psychiatric: A&O x 3, depressed - Problem List (1) Palliative care encounter Code(s): Z51.5 - ENCOUNTER FOR PALLIATIVE CARE Current Visit: Yes Status: Acute (2) Bone lesion Code(s): M89.9 - DISORDER OF BONE, UNSPECIFIED Current Visit: Yes Status: Acute (3) Diverticulitis Code(s): K57.92 - DVTRCLI OF INTEST, PART UNSP, W/O PERF OR ABSCESS W/O BLEED Current Visit: Yes Status: Acute (4) NSTEMI (non-ST elevated myocardial infarction) Code(s): I21.4 - NON-ST ELEVATION (NSTEMI) MYOCARDIAL INFARCTION Current Visit : Yes Status: Acute (5) Pulmonary edema Code(s): J81.1 - CHRONIC PULMONARY EDEMA Current Visit: Yes Status: Acute - Plan/Recommendations Plan: Initial contact with patient. Introduced palliative care, review of current health complications and findings. Patient respirations mildly labored. Daughter had stepped out to eat. *Will follow up to continue to discuss new findings in relation to bone lesions *Discuss disease trajectory and goals of care for patient *support daughter and other family members [60] minutes spent on this encounter with >50% of the time in counseling and coordination of care. Thank you for this very appropriate consult.
[2019-10-16] MEDS: ALPRAZolam 0.25 MG TAB PO PRN ×3 (15:35→21:53)
[2019-10-16] MEDS ORDERED: Furosemide 100 MG/10 ML VIAL SLOW IVP SCH (18:00)
--- NOTE | 2019-10-16 18:12 | PRG ---
DATE OF SERVICE: 10/16/2019 SUBJECTIVE: Mr. Uriarte continues to do poorly. He is on BiPAP. He is still struggling to breathe. OBJECTIVE: VITAL SIGNS: His respiratory rate is 27, blood pressure 100/60, pulse is 125, it is sinus tachycardia with a left bundle-branch block. LUNGS: He has rales bilaterally. CARDIAC: Distant. He is tachycardic. No murmur, rub, or gallop. ABDOMEN: Soft and nontender. EXTREMITIES: Still warm and dry. ASSESSMENT: 1. Congestive heart failure, systolic acute probably on chronic with severely depressed left ventricular function. 2. Aortic stenosis noted in his bioprosthetic valve with a high gradient and severe aortic stenosis. 3. Renal failure. 4. Pulmonary edema. 5. Diverticulitis. 6. Prostate cancer, in all likelihood. At this point, the prognosis is guarded to poor. I do not know if the patient is going to improve due to the severe aortic stenosis with a prosthetic valve. He is not a candidate for any surgical operation certainly in this type of condition. We will need to go ahead and give another dose of Lasix. Prognosis is very poor unfortunately in this gentleman. Job ID: [id number]
--- NOTE | 2019-10-16 19:16 | PDOC.HOSPP ---
- Subjective Encounter Date: 10/16/19 Encounter Time: 10:00 Subjective: Pt seen for followup re: NSTEMI. s/o SOBOE, no chest pain. - Objective Vital Signs & Weight: Vital Signs (12 hours) Temp Pulse Resp Pulse Ox 10/16/19 18:42 113 H 10/16/19 16:07 129 H 10/16/19 16:00 98.9 F 10/16/19 13:25 115 H 24 H 94 L 10/16/19 11:10 117 H 10/16/19 09:52 94 L 10/16/19 08:01 95 10/16/19 08:00 93 L 10/16/19 07:57 97 25 H 100 Weight Admit Weight 150 lb Weight 150 lb Most Recent Monitor Data Heart Rate from ECG 115 NIBP 129/92 NIBP BP-Mean 104 Respiration from ECG 32 SpO2 97 I&O: 10/15/19 10/16/19 10/17/19 06:59 06:59 06:59 Intake Total 2610 974.8 300 Output Total 1000 1645 300 Balance 1610 -670.2 0 Result Diagrams: 10/16/19 03:20 10/16/19 03:20 Additional Labs: Labs and MARs reviewed by me EKG Reviewed by me: Yes (Tele: s. tach) Hospitalist ROS - Review of Systems Constitutional: reports: weakness Respiratory: reports: cough, SOB with excertion, sputum. denies: dry, shortness of breath, hemoptysis, pleuritic pain, wheezing Cardiovascular: reports: orthopnea. denies: chest pain, palpitations, paroxysmal noc. dyspnea, edema, light headedness - Medication Medications: Active Medications Generic Name Dose Route Start Last Admin Trade Name Freq PRN Reason Stop Dose Admin Hydrocodone Bitart/Acetaminophen 1 tab 10/13/19 09:42 10/16/19 04:26 [place] 5/325 PO 1 tab Q4H PRN Administration Moderate Pain (4-6) Albuterol/Ipratropium 3 ml 10/15/19 07:00 10/16/19 18:41 Duoneb NEB 3 ml [id number] RICHARD Administration Alprazolam 0.25 mg 10/16/19 13:23 10/16/19 15:38 Xanax PO 0.25 mg TIDPRN PRN Administration Anxiety Aspirin 300 mg 10/16/19 09:00 10/16/19 09:57 Aspirin [place] 300 mg DAILY RICHARD Administration Bicalutamide 50 mg 10/15/19 09:00 10/16/19 10:02 Casodex PO 50 mg DAILY RICHARD Administration Famotidine 20 mg 10/15/19 21:00 10/15/19 21:08 Pepcid SLOW IVP 20 mg 2100 RICHARD Administration Furosemide 80 mg 10/16/19 18:00 10/16/19 18:42 Lasix SLOW IVP 10/16/19 20:00 80 mg NOW RICHARD Administration Guaifenesin 200 mg 10/15/19 01:22 10/15/19 02:01 Organ-I Nr PO 200 mg Q4H PRN Administration Congestion Metronidazole 500 mg/ Device 100 mls @ 100 mls/hr 10/13/19 06:00 10/16/19 15: 00 IVPB 100 mls Q8HR RICHARD Administration Cefepime HCl 1 gm/ Sodium 100 mls @ 100 mls/hr 10/16/19 09:00 10/16/19 09:57 Chloride IVPB 100 mls 0900 RICHARD Administration Nitroglycerin/Dextrose 250 mls @ 20 mls/hr 10/15/19 15:00 10/15/19 15:29 Nitroglycerin 50 Mg/250 Ml Bot IVPB 250 mls INF RICHARD Administration Protocol Ondansetron HCl 4 mg 10/14/19 16:50 10/16/19 03:48 Zofran SLOW IVP 4 mg Q6H PRN Administration Nausea/Vomiting Sodium Chloride 10 ml 10/13/19 09:00 10/16/19 10:17 Flush - Normal Saline IVF Not Given Q12HR RICHARD - Exam General Appearance: NAD Eye: anicteric sclera ENT: moist mucosa Neck: JVD Heart - other findings: S1, S2, tachy, reg Respiratory - other findings: Rafael crackles Gastrointestinal: soft, non-tender Musculoskeletal: generalized weakness Psychiatric: normal affect, normal behavior Hosp A/P (1) NSTEMI (non-ST elevated myocardial infarction) Code(s): I21.4 - NON-ST ELEVATION (NSTEMI) MYOCARDIAL INFARCTION Status: Acute (2) Acute respiratory failure with hypoxia Code(s): J96.01 - ACUTE RESPIRATORY FAILURE WITH HYPOXIA Status: Acute (3) Acute pulmonary edema Code(s): J81.0 - ACUTE PULMONARY EDEMA Status: Acute (4) Diverticulitis Code(s): K57.92 - DVTRCLI OF INTEST, PART UNSP, W/O PERF OR ABSCESS W/O BLEED Status: Acute (5) Prostate enlargement Code(s): N40.0 - BENIGN PROSTATIC HYPERPLASIA WITHOUT LOWER URINRY TRACT SYMP Status: Acute (6) Bone lesion Code(s): M89.9 - DISORDER OF BONE, UNSPECIFIED Status: Acute (7) Elevated PSA Code(s): R97.20 - ELEVATED PROSTATE SPECIFIC ANTIGEN [PSA] Status: Acute (8) Chronic kidney disease, stage 3 Code(s): N18.3 - CHRONIC KIDNEY DISEASE, STAGE 3 (MODERATE) Status: Chronic (9) CAD (coronary artery disease) Code(s): I25.10 - ATHSCL HEART DISEASE OF [place] CORONARY ARTERY W/O ANG PCTRS Status: Chronic - Plan plan discussed w/ family, continue antibiotics, respiratory therapy Consults: Palliative Care Administer furosemide. Pt received aspirin and therapeutic Lovenox. Troponin elevated. Pt to follow with urologist as outpt for prostate biopsy. Cardiology, PCCM, GI and urology following. Prognosis guarded. Pall care consulted.
--- NOTE | 2019-10-16 21:30 | CON ---
DATE OF CONSULTATION: HISTORY OF PRESENT ILLNESS: Mr. Uriarte is an 84-year-old white male, who was initially admitted for abdominal pain. A CT scan of the abdomen and pelvis was done and the kidneys showed no intrinsic abnormality or any evidence of obstruction. However, vascular calcifications were noted. He also had a CT scan of the chest done on October 13, 2019, which showed no evidence of pulmonary metastatic disease. There is a mild peripheral interstitial fibrosis of the lung with mild bronchiectasis. During the initial evaluation, the patient has been seen by the urologist due to severely elevated PSA. He had a bone scan, which was positive for metastatic lesions. The feeling is that he may have prostate cancer with metastatic lesions to the bones. In the interim, the patient has been developing shortness of breath and he has been diuresed. We are now being consulted for his acute kidney injury on top of ? of chronic renal failure. REVIEW OF SYSTEMS: Positive for mild shortness of breath. No nausea. No vomiting. No diarrhea. No constipation. No productive cough. No fever or chills. Positive for occasional abdominal pain. Positive for joint pains. Appetite and energy level are fair. MEDICATIONS: 1. Xanax 0.25 mg t.i.d. p.r.n. 2. Aspirin 300 mg daily. 3. Casodex 50 mg daily. 4. Cefepime 1 g daily. 5. Lovenox 70 mg subcu daily. 6. Furosemide 20 mg IV daily. 7. P.r.n. hydrocodone. 8. DuoNeb q.6. 9. Nitroglycerin drip. 10. Zofran p.r.n. 11. MiraLAX 17 g daily. PAST MEDICAL HISTORY: 1. Recent diagnosis of metastatic prostate cancer. 2. Coronary artery disease. 3. Valvular heart disease, status post diverticulitis. PAST SURGICAL HISTORY: Status post cardiac cath, status post CABG, status post aortic valve surgery. 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 He lives in [place]. Smoked for about 20 to 30 years 1 pack a day, currently not smoking for the last 20 years. No alcohol. No drug abuse. Two children with 1 . Sedentary lifestyle. No IV drug abuse. FAMILY HISTORY: No family history of ESRD. ALLERGIES: ANTIHISTAMINE. TRAUMA: None. IMMUNIZATION: Up-to-date. HOSPITALIZATIONS: Please see past medical history. PHYSICAL EXAMINATION: VITAL SIGNS: Blood pressure is 102/61 with a heart rate of 112, respiratory rate 22, and O2 saturation 93%. GENERAL: Noted to be awake, sitting comfortable, not in overt distress. SKIN: Adequate turgor. HEENT: Pinkish conjunctivae. Anicteric sclerae. The patient has the nasal CPAP. NECK: No neck mass. No carotid bruits. No JVD. LUNGS: Decreased breath sounds. HEART: Normal sinus rhythm. Grade 2/6 systolic murmur. No gallops. No rubs. ABDOMEN: Globular, soft, and nontender. No masses. EXTREMITIES: No edema. No deformities. NEUROLOGIC: Awake and oriented to 3 spheres. Moving all extremities. No tremors. No asterixis. No ataxia. LABORATORY DATA: October 16, 2019; white count 19.1, hemoglobin 12.1. Sodium 135, potassium 4.4, chloride 108, carbon dioxide 15, BUN 45, creatinine 2.42, glucose 172, and calcium 8.8. Troponin I 11.462. BNP 3605. October 15, 2019, creatinine 1.9. October 14, 2019, creatinine 1.78. October 12, 2019, creatinine 1.75. Urinalysis of October 12, 2019, protein is positive at 50, no red blood cells, no white cells. CT scan of the abdomen and pelvis, no obstructive uropathy noted. ASSESSMENT AND PLAN: 1. Acute kidney injury on top of his possible chronic renal failure-consider a superimposed hemodynamically-mediated renal dysfunction. Urine sediment was relatively benign. He has had an episode of shortness of breath as well as diuretic use. The plan is to optimize his hemodynamics. Currently, the patient is off diuretics. He was receiving diuretics at 80 mg IV daily. This has now been discontinued due to the worsening renal dysfunction. Continue supportive care. There is no indication for any dialytic intervention. Continue to optimize hemodynamics. 2. Metastatic prostate cancer, currently on Casodex. Urology is following. Urology is contemplating possible prostate biopsy with this patient. 3. Abdominal pain, clinically much improved. For the moment, agree with current management holding off any diuretics. 4. We will recheck basic metabolic profile, CBC in a.m. Job ID: [id number]
[2019-10-16] MEDS: Famotidine/PF 20 mg/2ml Vial SLOW IVP SCH (21:41)
[2019-10-17 03:54] LABS: #Lymphocytes 0.4 thou/uL (1.20-3.40); #Monocytes 0.7 thou/uL (0.11-0.59); #Neutrophils 14.4 thou/uL (1.40-6.50); %Lymphocytes 2.6 % (21.0-51.0); %Monocytes 4.3 % (0.0-10.0); %Neutrophils 93.1 % (42.0-75.0); Hemoglobin 11.7 g/dL (14.0-18.0); Mean Corpuscular HGB CONC 33.5 g/dL (32.0-36.0); Mean Corpuscular Hemoglobin 31.3 pg (27.0-31.0); Mean Corpuscular Volume 93.6 fL (78.0-98.0); Mean Platelet Volume 6.9 fL (7.4-10.4); Platelet Count 283 thou/uL (130-400); RBC Distribution Width 12.1 % (11.5-14.5); Red Blood Cell (RBC) Count 3.72 mill/uL (4.70-6.10); White Blood Cell (WBC) Count 15.5 thou/uL (4.8-10.8)
[2019-10-17 04:25] LABS: Anion Gap 16 mmol/L (10-20); BUN (Urea Nitrogen) 56 mg/dL (8.4-25.7); Calc. Creatinine Clearance 22 mL/min (70-130); Calcium 8.8 mg/dL (7.8-10.44); Carbon Dioxide 19 mmol/L (23-31); Chloride 105 mmol/L (98-107); Estimated GFR-MDRD 26; Glucose 116 mg/dL (83-110); Potassium 3.6 mmol/L (3.5-5.1); Sodium 136 mmol/L (136-145)
[2019-10-17] MEDS: metroNIDAZOLE 500 MG in Premix Bag 1 BAG IVPB SCH (05:19)
--- NOTE | 2019-10-17 07:27 | RAD ---
RADIOGRAPH CHEST 1 VIEW: DATE: 10/17/2019 TIME: 4:33 AM HISTORY: Follow-up pulmonary edema in 84-year-old male COMPARISON: 10/15/2019 FINDINGS: No cardiomegaly. Signs of previous CABG. Again noted are the diffuse interstitial and alveolar, mostl y alveolar, infiltrates throughout the bilateral mid and lower lung zones. These have become slightly more extensively into the upper lung zones now compared to the prior study. No other interva l change. Small bilateral pleural effusions. No pneumothorax. IMPRESSION: 1. The diffuse, somewhat severe bilateral pulmonary opacities have become slightly more extensive sin ce the prior study. 2. Differential diagnosis is noncardiogenic pulmonary edema versus bilateral pneumonia. 3. Small bilateral pleural effusions.
[2019-10-17] MEDS: ALPRAZolam 0.25 MG TAB PO PRN ×2 (07:50→20:59)
[2019-10-17] MEDS ORDERED: Furosemide 100 MG/10 ML VIAL SLOW IVP SCH ×2 (08:30→20:00)
--- NOTE | 2019-10-17 08:39 | PRG ---
DATE OF SERVICE: 10/17/2019 SUBJECTIVE: Mr. Uriarte is an 84-year-old white male, who was seen for his acute kidney injury. This was felt to be a hemodynamically-mediated renal dysfunction related to his CHF. Renal function in the last 24 hours seems to be stabilizing. He continues to receive p.r.n. Lasix due to his CHF. Chest x-ray shows increased lung markings with a possibility of CHF versus noncardiogenic pulmonary edema. He is still noted to be short of breath and currently on nasal BiPAP. OBJECTIVE: VITAL SIGNS: Blood pressure 109/74, heart rate is 127, respiratory rate 32, and pulse ox 93%. GENERAL: The patient is awake and sitting comfortable, not in overt distress. SKIN: Adequate turgor. HEENT: He has pinkish conjunctivae. Anicteric sclerae. NECK: No neck mass. No carotid bruits. No JVD. CHEST: No deformities. LUNGS: Clear breath sounds. HEART: Normal sinus rhythm. No murmur. No gallops. No rubs. ABDOMEN: Globular, soft, and nontender. No masses. EXTREMITIES: No edema. No deformities. MEDICATIONS: Medications of October 17, 2019, reviewed. LABORATORY DATA: Laboratories of October 17, 2019; white count 15.5, hemoglobin 11.7. Sodium 136, potassium 3.6, chloride 105, carbon dioxide 19, BUN is 56, creatinine is 2.44, glucose 116, and calcium 8.8. BNP is 3605. ASSESSMENT AND PLAN: 1. Acute kidney injury - consider hemodynamically-mediated renal dysfunction. The patient is continued to be diuresed due to the ? of congestive heart failure. Cardiology is following. Please note, he has a decreased EF. We will continue Lasix 80 mg IV x1 dose today. 2. Shortness of breath - multifactorial etiology. Congestive heart failure versus noncardiogenic pulmonary edema. We will give Lasix 80 mg IV x1 dose today. There is no indication for any dialytic intervention. 3. Metastatic prostate cancer - on Casodex. Urology is following. 4. Recheck basic metabolic and CBC in a.m. Job ID: [id number]
[2019-10-17] MEDS: Aspirin 300 MG Suppository PR SCH (08:43)
[2019-10-17] MEDS: Cefepime 1 GM in Sodium Chloride 0.9% 100 ML IVPB SCH (08:43)
--- NOTE | 2019-10-17 09:50 | PRG ---
DATE OF SERVICE: 10/17/2019 SUBJECTIVE: Mr. Uriarte is slightly better today. He is on a high-flow nasal cannula today instead of the BiPAP. OBJECTIVE: VITAL SIGNS: Blood pressure 90/60, pulse 116 and sinus with a left bundle-branch block. Respiratory rate is still high at about 30. LUNGS: Diffuse rales. CARDIAC: Normal S1. Normal S2. ABDOMEN: Soft and nontender. EXTREMITIES: There is no edema. PERTINENT LABORATORY DATA: His hemoglobin is 11.7. Creatinine is 2.44. ASSESSMENT: 1. Congestive heart failure, acute, systolic with akinesis of the anterior wall and apex and ejection fraction of 20% to 25%. 2. 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 The aortic valve area was calculated at 0.5 cm2 with severe aortic stenosis. 3. Renal failure. 4. History of diverticulitis prompting this admission. PLAN: 1. I discussed with the patient's family at this point not a surgical candidate, would not survive an operation at this point in my opinion. 2. Continue diuretics. 3. Prognosis is likely poor in long-term. Hopefully, the patient could improve to the point, where catheterization could be considered, but at this point, I think even catheterization would not be feasible without intubating him and exposing him to a significant risk of acute renal failure. 4. Prognosis is guarded to poor. 5. Current status, do not resuscitate. Job ID: [id number]
[2019-10-17] MEDS ORDERED: Cipro 250 MG TAB PO SCH ×2 (10:00→20:00)
[2019-10-17] MEDS ORDERED: predniSONE 20 MG TAB PO SCH (10:15)
[2019-10-17] MEDS ORDERED: Cefdinir 300 MG CAP PO SCH (10:15)
[2019-10-17] MEDS: Bicalutamide 50 MG TAB PO SCH (10:19)
--- NOTE | 2019-10-17 10:29 | PRG ---
DATE OF SERVICE: 10/17/2019 SERVICE: Pulmonary Medicine. INTERVAL HISTORY: The patient is doing okay from respiratory standpoint. He is on a BiPAP break currently. He does have conversational dyspnea. Otherwise, there has been no interval change to his condition. He is coughing up a little bit less phlegm. He is also touch less color to it. LABORATORY DATA: WBC 15.5, hemoglobin 11.7, and platelets 283,000. Creatinine 2.44 and stable and BUN 56 and gently uptrending. Basic metabolic profile is otherwise unremarkable. Urinalysis is unremarkable. IMAGING: Chest x-ray demonstrates bilateral effusions and interstitial opacifications throughout bilateral lung mack. There is significant cephalization present. All this is consistent with volume overload. ASSESSMENT: 1. Acute hypoxic respiratory failure. 2. Severe sepsis secondary to diverticulitis. 3. Non-ST elevation myocardial infarction. 4. Acute on chronic systolic, and valvular heart failure. 5. Chronic kidney disease. 6. Prostate cancer, suspected. DISCUSSION AND PLAN: I will convert his antibiotics over to p.o. as the patient simply does not need the volume of the antibiotics at this point. We will continue to diurese him through time. Pulmonary/Critical Care will continue to follow along while the patient remains in this location. He will go on and off the BiPAP throughout the day. When he is off the BiPAP, he can be placed on high-flow nasal cannula. Job ID: [id number]
[2019-10-17] MEDS: HYDROcodone/Acetaminophen 5/325 mg Tablet PO PRN (12:22)
--- NOTE | 2019-10-17 16:17 | PDOC.HOSPP ---
- Subjective Encounter Date: 10/17/19 Encounter Time: 10:00 Subjective: Pt seen for followup re: NSTEMI. Still has significant shortness of breath. No chest pain. - Objective Vital Signs & Weight: Vital Signs (12 hours) Temp Pulse Ox 10/17/19 12:01 93 L 10/17/19 08:00 97.8 F 10/17/19 07:52 93 L 10/17/19 07:00 97.8 F Weight Admit Weight 150 lb Weight 150 lb Most Recent Monitor Data Heart Rate from ECG 120 NIBP 117/68 NIBP BP-Mean 84 Respiration from ECG 33 SpO2 93 I&O: 10/16/19 10/17/19 10/18/19 06:59 06:59 06:59 Intake Total 974.8 966.2 210 Output Total 1645 1475 530 Balance -670.2 -508.8 -320 Result Diagrams: 10/17/19 03:35 10/17/19 03:35 Additional Labs: Labs and MARs reviewed by me EKG Reviewed by me: Yes (Tele: sinus tachycardia) Hospitalist ROS - Review of Systems Respiratory: reports: cough, shortness of breath, sputum Cardiovascular: reports: orthopnea. denies: chest pain, palpitations, paroxysmal noc. dyspnea, edema, light headedness Gastrointestinal: denies: nausea, vomiting, abdominal pain, diarrhea, constipation, melena, hematochezia - Medication Medications: Active Medications Generic Name Dose Route Start Last Admin Trade Name Freq PRN Reason Stop Dose Admin Hydrocodone Bitart/Acetaminophen 1 tab 10/13/19 09:42 10/17/19 12:[address] 5/325 PO 1 tab Q4H PRN Administration Moderate Pain (4-6) Albuterol/Ipratropium 3 ml 10/15/19 07:00 10/17/19 13:40 Duoneb NEB Not Given [id number] RICHARD Alprazolam 0.25 mg 10/16/19 13:23 10/17/19 07:50 Xanax PO 0.25 mg TIDPRN PRN Administration Anxiety Aspirin 300 mg 10/16/19 09:00 10/17/19 08:43 Aspirin [place] 300 mg DAILY RICHARD Administration Bicalutamide 50 mg 10/15/19 09:00 10/17/19 10:19 Casodex PO 50 mg DAILY RICHARD Administration Famotidine 20 mg 10/15/19 21:00 10/16/19 21:41 Pepcid SLOW IVP 20 mg 2100 RICHARD Administration Guaifenesin 200 mg 10/15/19 01:22 10/15/19 02:01 Organ-I Nr PO 200 mg Q4H PRN Administration Congestion Ondansetron HCl 4 mg 10/14/19 16:50 10/16/19 03:48 Zofran SLOW IVP 4 mg Q6H PRN Administration Nausea/Vomiting Sodium Chloride 10 ml 10/13/19 09:00 10/17/19 08:43 Flush - Normal Saline IVF 10 ml Q12HR RICHARD Administration - Exam General Appearance: NAD Eye: anicteric sclera ENT: moist mucosa Neck: supple, symmetric Heart - other findings: S1, S2, tachy, reg Respiratory - other findings: Rafael crackles Gastrointestinal: soft, non-tender Skin: no rashes Psychiatric: normal affect, normal behavior Hosp A/P (1) NSTEMI (non-ST elevated myocardial infarction) Code(s): I21.4 - NON-ST ELEVATION (NSTEMI) MYOCARDIAL INFARCTION Status: Acute (2) Acute respiratory failure with hypoxia Code(s): J96.01 - ACUTE RESPIRATORY FAILURE WITH HYPOXIA Status: Acute (3) Acute pulmonary edema Code(s): J81.0 - ACUTE PULMONARY EDEMA Status: Acute (4) Diverticulitis Code(s): K57.92 - DVTRCLI OF INTEST, PART UNSP, W/O PERF OR ABSCESS W/O BLEED Status: Acute (5) Prostate enlargement Code(s): N40.0 - BENIGN PROSTATIC HYPERPLASIA WITHOUT LOWER URINRY TRACT SYMP Status: Acute (6) Bone lesion Code(s): M89.9 - DISORDER OF BONE, UNSPECIFIED Status: Acute (7) Elevated PSA Code(s): R97.20 - ELEVATED PROSTATE SPECIFIC ANTIGEN [PSA] Status: Acute (8) Chronic kidney disease, stage 3 Code(s): N18.3 - CHRONIC KIDNEY DISEASE, STAGE 3 (MODERATE) Status: Chronic (9) CAD (coronary artery disease) Code(s): I25.10 - ATHSCL HEART DISEASE OF [place] CORONARY ARTERY W/O ANG PCTRS Status: Chronic - Plan Pt receiving furosemide. Continue aspirin and therapeutic Lovenox. Pt being treated Pt to follow with urologist as outpt for prostate biopsy. Cardiology, PCCM, GI and urology following. Prognosis guarded.
[2019-10-17] MEDS: metroNIDAZOLE 500 MG TAB PO SCH ×2 (16:50→20:59)
[2019-10-17] MEDS: Cefdinir 300 MG CAP PO SCH (20:58)
[2019-10-17] MEDS: Famotidine/PF 20 mg/2ml Vial SLOW IVP SCH (20:58)
[2019-10-18 05:17] LABS: Anion Gap 15 mmol/L (10-20); BUN (Urea Nitrogen) 78 mg/dL (8.4-25.7); Calc. Creatinine Clearance 22 mL/min (70-130); Calcium 8.8 mg/dL (7.8-10.44); Carbon Dioxide 19 mmol/L (23-31); Chloride 105 mmol/L (98-107); Estimated GFR-MDRD 25; Glucose 186 mg/dL (83-110); Potassium 3.3 mmol/L (3.5-5.1); Sodium 136 mmol/L (136-145)
[2019-10-18] MEDS: ALPRAZolam 0.25 MG TAB PO PRN ×3 (05:31→21:08)
[2019-10-18 06:32] LABS: Band 10 % (5-11); Hemoglobin 11.8 g/dL (14.0-18.0); Lymphocytes 1 % (21-51); MDiff Complete? YES; Mean Corpuscular HGB CONC 33.8 g/dL (32.0-36.0); Mean Corpuscular Hemoglobin 31.2 pg (27.0-31.0); Mean Corpuscular Volume 92.2 fL (78.0-98.0); Mean Platelet Volume 7.7 fL (7.4-10.4); Monocytes 1 % (0-10); Neutrophil 88 % (42-75); Platelet Count 328 thou/uL (130-400); RBC Distribution Width 12.1 % (11.5-14.5); Red Blood Cell (RBC) Count 3.77 mill/uL (4.70-6.10); White Blood Cell (WBC) Count 16.1 thou/uL (4.8-10.8)
[2019-10-18] MEDS: Aspirin 300 MG Suppository PR SCH (08:48)
[2019-10-18] MEDS: Cefdinir 300 MG CAP PO SCH ×2 (08:48→21:07)
[2019-10-18] MEDS: metroNIDAZOLE 500 MG TAB PO SCH ×3 (08:48→21:08)
[2019-10-18] MEDS: predniSONE 20 MG TAB PO SCH (08:48)
[2019-10-18] MEDS: Bicalutamide 50 MG TAB PO SCH (08:53)
[2019-10-18] MEDS ORDERED: Potassium Chloride 20 MEQ TAB PO SCH (09:15)
[2019-10-18] MEDS ORDERED: Furosemide 100 MG/10 ML VIAL SLOW IVP SCH (09:15)
--- NOTE | 2019-10-18 09:33 | PRG ---
DATE OF SERVICE: 10/18/2019 SUBJECTIVE: Mr. Uriarte continues to feel weak and fatigue and short of breath with any type of activity at all and even sometimes at rest. No chest pain. OBJECTIVE: VITAL SIGNS: His blood pressure 100/73, pulse is 110 to 120 and sinus with a left bundle-branch block. NECK: Veins are mildly distended. LUNGS: Diffuse rales. CARDIAC: He is tachycardic. There is no significant new murmur, rub, or gallop. ABDOMEN: Soft, nontender. EXTREMITIES: There is no edema. LABORATORY DATA: Hemoglobin is 11.8. Creatinine is 2.46, estimated GFR is 25. We did receive records, in 2002, the patient did have a #23 bioprosthetic valve, a pericardial prosthesis and bypass surgery x1 with internal mammary to the LAD for a critical LAD lesion. ASSESSMENT: 1. Severe congestive heart failure, acute on chronic. 2. Renal failure, stage 4. 3. Continued pulmonary edema. 4. 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 5. Left bundle-branch block. 6. Severely depressed LV function. PLAN: 1. Continue intravenous diuretics. 2. No longer on nitrates due to blood pressure being lower. 3. Prognosis unfortunately is extremely poor. Certainly not a reoperative candidate at this stage. The patient has indicated he desires do not resuscitate status. There is really not anything further that can be done. Obviously, beta blockers or LINO inhibitors will not be feasible with hypotension and decompensated heart failure with severe aortic stenosis. I will be out this week, one of my partners to be following this week in this unfortunate gentleman. Job ID: [id number] [facility]
--- NOTE | 2019-10-18 10:00 | PRG ---
DATE OF SERVICE: 10/18/2019 SUBJECTIVE: Mr. Uriarte is an 84-year-old white male, seen by the renal service for his acute kidney injury, that was hemodynamically-mediated renal dysfunction. He also has underlying CHF. Continues to be diuresed. He seems to be tolerating the current diuretic regimen since his renal function. He is holding steady at a creatinine of 2.4. This morning, he is still short of breath. Cardiology is following. Please note he has a history of significant aortic stenosis and the feeling is that he is not an operative candidate. OBJECTIVE: VITAL SIGNS: Blood pressure 116/79, heart rate 115, respiratory rate 31, O2 saturation 94%. GENERAL: Noted to be awake, alert, supine, comfortable, not in overt distress. SKIN: Adequate turgor. HEENT: Pinkish conjunctivae. Anicteric sclerae. NECK: No neck mass. No carotid bruits. No JVD. CHEST: No deformities. LUNGS: Decreased breath sounds. HEART: Normal sinus rhythm. No murmur. No gallops. No rubs. ABDOMEN: Globular, soft, and nontender. No masses. EXTREMITIES: No edema. No deformities. MEDICATIONS: Medications of 10/18/2019 were reviewed. LABORATORY DATA: On 10/18/2019: Sodium 136, potassium 3.3, chloride 105, carbon dioxide 19, BUN 78, creatinine 2.46, and calcium 8.8. Hemoglobin 11.8. ASSESSMENT AND PLAN: 1. Acute kidney injury. This is hemodynamically mediated renal dysfunction secondary to congestive heart failure as well as aortic stenosis. He is now on maintenance IV diuretics for his congestive heart failure. There is no indication for any dialytic intervention with this patient. 2. Shortness of breath secondary to his congestive heart failure. He does have significant aortic stenosis. 3. Metastatic prostate cancer, currently on Casodex. Future prostate biopsy if wanted. 4. Overall prognosis remains poor. Agree with current management. Job ID: [id number]
--- NOTE | 2019-10-18 11:22 | PRG ---
DATE OF SERVICE: 10/18/2019 SERVICE: Pulmonary Medicine. INTERVAL HISTORY: The patient is doing fine from respiratory standpoint. He is breathing a little easier today than yesterday. That being said, he is tired. He indicates he is still coughing. He is still bringing up a little bit of phlegm, but there is a little less color to it. Otherwise, there has been no interval change to his condition. PHYSICAL EXAMINATION: VITAL SIGNS: Afebrile, pulse 112, blood pressure 116/66, respirations 33, saturation 93% on 50% FiO2 via high-flow nasal cannula. GENERAL: The patient is awake and alert. No apparent distress. LUNGS: Decent air entry. Extensive crackling is present. There is no prolonged expiratory phase or wheezing appreciated. HEART: Normal rate. Tachycardic. Regular. ABDOMEN: Soft, nontender, and nondistended. Bowel sounds positive. MUSCULOSKELETAL: No cyanosis or clubbing. There is no pitting in the bilateral lower extremities. NEUROLOGIC: Grossly nonfocal. LABORATORY DATA: WBC is 16.1, hemoglobin 11.8, platelets 328,000. Creatinine 2.46 and stable. BUN gently up trending to 78, anion gap 15, bicarb 19. Potassium 3.3. Urinalysis is unremarkable. ASSESSMENT: 1. Acute hypoxic respiratory failure. 2. Severe sepsis secondary to diverticulitis. 3. Fdc-[id number]-olcnnblxg myocardial infarction. 4. Acute on chronic systolic and valvular heart failure. 5. Chronic kidney disease, stage 3/4. 6. Prostate cancer, suspected. DISCUSSION AND PLAN: His potassium is 3.3. I will give him one time dose. We will continue diuresing down to euvolemia as tolerated. A [place] catheter will be placed immediately post void. If there is significant residual in there, the [place] catheter will be left behind. Job ID: [id number]
--- NOTE | 2019-10-18 12:30 | PDOC.HOSPP ---
- Subjective Encounter Date: 10/18/19 Encounter Time: 10:45 Subjective: pt up in bed appear sob. Daughter at bedside updated. - Objective Vital Signs & Weight: Vital Signs (12 hours) Temp Pulse Ox 10/18/19 12:00 98.3 F 10/18/19 08:00 98.4 F 94 L 10/18/19 04:00 98.2 F 94 L Weight Admit Weight 150 lb Weight 141 lb 8.588 oz Most Recent Monitor Data Heart Rate from ECG 115 NIBP 118/75 NIBP BP-Mean 89 Respiration from ECG 28 SpO2 91 I&O: 10/17/19 10/18/19 10/19/19 06:59 06:59 06:59 Intake Total 966.2 1931 360 Output Total 9085 6465 810 Balance -508.8 -124 -450 Result Diagrams: 10/18/19 04:45 10/18/19 04:45 Hospitalist ROS - Review of Systems Respiratory: reports: shortness of breath Cardiovascular: denies: chest pain, palpitations, orthopnea, paroxysmal noc. dyspnea, edema, light headedness, other Gastrointestinal: denies: nausea, vomiting, abdominal pain, diarrhea, constipation, melena, hematochezia, other - Medication Medications: Active Medications Generic Name Dose Route Start Last Admin Trade Name Freq PRN Reason Stop Dose Admin Hydrocodone Bitart/Acetaminophen 1 tab 10/13/19 09:42 10/17/19 12:22 [place] 5/325 PO 1 tab Q4H PRN Administration Moderate Pain (4-6) Alprazolam 0.25 mg 10/16/19 13:23 10/18/19 05:31 Xanax PO 0.25 mg TIDPRN PRN Administration Anxiety Aspirin 300 mg 10/16/19 09:00 10/18/19 08:48 Aspirin [place] 300 mg DAILY RICHARD Administration Bicalutamide 50 mg 10/15/19 09:00 10/18/19 08:53 Casodex PO 50 mg DAILY RICHARD Administration Cefdinir 300 mg 10/17/19 21:00 10/18/19 08:48 Omnicef PO 300 mg BID RICHARD Administration Famotidine 20 mg 10/15/19 21:00 10/17/19 20:58 Pepcid SLOW IVP 20 mg 2100 RICHARD Administration Guaifenesin 200 mg 10/15/19 01:22 10/15/19 02:01 Organ-I Nr PO 200 mg Q4H PRN Administration Congestion Metronidazole 500 mg 10/17/19 15:00 10/18/19 08:48 Flagyl PO 500 mg TID RICHARD Administration Ondansetron HCl 4 mg 10/14/19 16:50 10/16/19 03:48 Zofran SLOW IVP 4 mg Q6H PRN Administration Nausea/Vomiting Polyethylene Glycol 17 gm 10/15/19 09:36 10/18/19 08:58 Miralax PO 17 gm DAILY PRN Administration Constipation Prednisone 40 mg 10/18/19 08:00 10/18/19 08:48 Prednisone PO 10/21/19 08:01 40 mg QAM-WM RICHARD Administration Sodium Chloride 10 ml 10/13/19 09:00 10/18/19 08:49 Flush - Normal Saline IVF 10 ml Q12HR RICHARD Administration - Exam Neck: negative: supple, symmetric, no JVD, no thyromegaly, no lymphadenopathy, no carotid bruit, JVD Heart: negative: RRR, no murmur, no gallops, no rubs, normal peripheral pulses, irregular, diminshed peripheral pulses, murmur present, II/IV, III/IV Respiratory: rhonchi Gastrointestinal: negative: soft, non-tender, non-distended, normal bowel sounds , no palpable masses, no hepatomegaly, no splenomegaly, no bruit, no guarding, no rigidity, tender to palpation, distended, diminished bowl sounds, voluntary guarding Extremities: negative: no cyanosis, no clubbing, no edema, 1+ LE edema, 2+ LE edema, clubbing Hosp A/P (1) Aortic stenosis Code(s): I35.0 - NONRHEUMATIC AORTIC (VALVE) STENOSIS Status: Acute (2) Acute respiratory failure with hypoxia Code(s): J96.01 - ACUTE RESPIRATORY FAILURE WITH HYPOXIA Status: Acute (3) Bone lesion Code(s): M89.9 - DISORDER OF BONE, UNSPECIFIED Status: Acute (4) Diverticulitis Code(s): K57.92 - DVTRCLI OF INTEST, PART UNSP, W/O PERF OR ABSCESS W/O BLEED Status: Acute (5) NSTEMI (non-ST elevated myocardial infarction) Code(s): I21.4 - NON-ST ELEVATION (NSTEMI) MYOCARDIAL INFARCTION Status: Acute (6) CAD (coronary artery disease) Code(s): I25.10 - ATHSCL HEART DISEASE OF [place] CORONARY ARTERY W/O ANG PCTRS Status: Chronic (7) Chronic kidney disease, stage 3 Code(s): N18.3 - CHRONIC KIDNEY DISEASE, STAGE 3 (MODERATE) Status: Chronic - Plan pt on high flow. will change breathing tx to ipratropium. will continue oral meds for now. worsening of creatinine will monitor. will also monitor his elevated wbc.
[2019-10-18] MEDS: Furosemide 40 MG/4 ML VIAL SLOW IVP SCH (13:12)
[2019-10-18] MEDS ORDERED: Metolazone 5 MG TAB PO SCH (13:45)
[2019-10-18] MEDS: Ipratropium Bromide 2.5 ml Neb NEB SCH ×3 (14:12→22:05)
[2019-10-18] MEDS: Famotidine/PF 20 mg/2ml Vial SLOW IVP SCH (21:07)
[2019-10-19] MEDS: HYDROcodone/Acetaminophen 5/325 mg Tablet PO PRN (00:20)
[2019-10-19] MEDS: Ipratropium Bromide 2.5 ml Neb NEB SCH ×5 (02:24→09:57)
[2019-10-19 04:04] VITALS: TEMP 98.5
[2019-10-19 04:42] LABS: Anion Gap 21 mmol/L (10-20); BUN (Urea Nitrogen) 96 mg/dL (8.4-25.7); Calc. Creatinine Clearance 20 mL/min (70-130); Calcium 8.5 mg/dL (7.8-10.44); Carbon Dioxide 16 mmol/L (23-31); Chloride 104 mmol/L (98-107); Estimated GFR-MDRD 24; Glucose 169 mg/dL (83-110); Potassium 3.8 mmol/L (3.5-5.1); Sodium 137 mmol/L (136-145)
[2019-10-19] MEDS: Furosemide 40 MG/4 ML VIAL SLOW IVP SCH ×2 (05:09→09:55)
[2019-10-19 06:14] VITALS: BMI 18.6
--- NOTE | 2019-10-19 07:34 | RAD ---
EXAM: Portable chest PROVIDED CLINICAL HISTORY: Edema COMPARISON: 10/17/2019 FINDINGS: Significant interval change with respect to the prior examination is not apparent. IMPRESSION: As above.
[2019-10-19] MEDS: Bicalutamide 50 MG TAB PO SCH (09:55)
[2019-10-19] MEDS: Aspirin 300 MG Suppository PR SCH (09:55)
[2019-10-19] MEDS: metroNIDAZOLE 500 MG TAB PO SCH ×3 (09:55→09:57)
[2019-10-19] MEDS: predniSONE 20 MG TAB PO SCH (09:55)
[2019-10-19] MEDS: Cefdinir 300 MG CAP PO SCH ×2 (09:55→09:57)
[2019-10-19] MEDS: Famotidine/PF 20 mg/2ml Vial SLOW IVP SCH (09:57)
--- NOTE | 2019-10-21 04:44 | PQF ---
[employer] Crystal Reports Winform ViewerYUDY CAIN DAVID [id number] [facility] [id number] CLINICAL DOCUMENTATION CLARIFICATION FORM: POST DISCHARGE Addendum to original discharge summary date: ____ Late entry note date: __ DATE: 10/21/2019 ATTN:SOLO FAY Please exercise your independent, professional judgment in responding to the clarification form. Clinical indicators are provided on the bottom of this form for your review Diagnosis: ___Sepsis Present on Admission (POA): [ ] Yes [ x ] No [ ] Unable to determine Coding guidelines require hospitals to identify whether a diagnosis was present on admission (POA) or not. To accurately assign the appropriate POA indicator, this information must be clearly documented within the medical record. CLINICAL INDICATORS - SIGNS / SYMPTOMS / LABS Severe Sepsis - Documented in Consult note on 10/15 by Torsten Sr Elevated WBC 11.1 on 10/12 and 19.9 on 10/15 - Documented in Laboratory Pulse rate 104 on 10/14 [id number] on 10/16 - Documented in Vital Signs Respiration rate 38 on 10/15 - Documented in Vital Signs Diverticulitis - Documented in Consult note on 10/15 by Torsten Sr RISK FACTORS: MAREN Acute Respiratory failure - Documented in Consult note on 10/15 by Torsten Sr NSTEMI - Documented in Consult note on 10/15 by Torsten Sr TREATMENT: Cefepime IVPB - Medication report [employer] Crystal Reports Winform [id number] [employer]. All Rights Reserved [email or web address] [not provided] (This form is maintained as a part of the permanent medical record) [facility]
--- NOTE | 2019-10-21 12:58 | DIS ---
DATE OF ADMISSION: 10/12/2019 DATE OF DISCHARGE: 10/19/2019 DATE OF : 10/19/2019. HOSPITAL COURSE: The patient is an 84-year-old male, who initially presented to the hospital on 10/13, with complaints of abdominal pain. The patient at this time complained of left lower quadrant abdominal pain. He was diagnosed with diverticulitis. The patient states that he has had flare-ups like this in the past. He started having some loose diarrhea, so he came into the hospital for further evaluation. The patient underwent a CT of abdomen and pelvis, which indicated diverticulitis to the sigmoid colon, uncomplicated and GI was consulted. He also was noted to have a sclerotic bone lesion. 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 Urology also was consulted on this patient. The patient had a nuclear bone scan which indicated metastatic involvement of the skull, ribs, and thoracic spine. During the hospital stay, the patient started having very short of breath at this time. Cardiology was consulted and the patient was transferred to the ICU. He was initially put on BiPAP. Chest x-ray indicated significant pulmonary edema. The patient did undergo an echocardiogram which indicated an EF of 20% to 25%. 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 He had a severely elevated pulmonary artery pressure and also was noted to have severe aortic stenosis of the bioprosthetic valve. The patient at this time was DNAR. He was put on BiPAP with minimal improvement. The patient's condition continued to deteriorate and on 10/19, while the patient was on BiPAP, he became very nonresponsive, very diaphoretic. There was no palpable pulse and at this time, the patient had . The patient around 8:04 am. The patient's family was notified. DISCHARGE DIAGNOSES: 1. Abdominal pain from diverticulitis. 2. Aortic stenosis. 3. Acute respiratory failure with hypoxia. 4. Bone lesions. 5. Yzx-MF-ryulcvirr myocardial infarction. 6. Coronary artery disease. 7. Chronic kidney disease stage 3. Job ID: [id number]
== END 2019-10-19 08:04 | disposition expired | DRG 391 ==
LOC: ERS 18:39 → T4-A 22:55 → CCU 10-15 12:05
PROVIDERS: ADMIT Internal Medicine; ATTEND Internal Medicine
PROC: 5A09457 Assistance with Respiratory Ventilation, 24-96 Consecutive Hours, Continuous Positive Airway Pressure (ICD-10-PCS; principal; 2019-10-15)
DX: K57.32 Diverticulitis of large intestine without perforation or abscess without bleeding (principal); J96.01 Acute respiratory failure with hypoxia; I21.4 Non-ST elevation (NSTEMI) myocardial infarction; R65.20 Severe sepsis without septic shock; A41.9 Sepsis, unspecified organism; I50.23 Acute on chronic systolic (congestive) heart failure; N17.9 Acute kidney failure, unspecified; I13.0 Hypertensive heart and chronic kidney disease with heart failure and stage 1 through stage 4 chronic kidney disease, or unspecified chronic kidney disease; T82.858A Stenosis of other vascular prosthetic devices, implants and grafts, initial encounter; J81.1 Chronic pulmonary edema; C79.51 Secondary malignant neoplasm of bone; N18.4 Chronic kidney disease, stage 4 (severe); Z66 Do not resuscitate; Z51.5 Encounter for palliative care; I25.10 Atherosclerotic heart disease of native coronary artery without angina pectoris; Z95.1 Presence of aortocoronary bypass graft; M89.9 Disorder of bone, unspecified; Z95.2 Presence of prosthetic heart valve; I35.0 Nonrheumatic aortic (valve) stenosis; C61 Malignant neoplasm of prostate; I44.7 Left bundle-branch block, unspecified; R97.20 Elevated prostate specific antigen [PSA]; Z79.82 Long term (current) use of aspirin
CPT/HCPCS: 36415; 71045; 71260; 74177; 78306; 80048; 80053; 81003; 81015; 83690; 83880; 84484; 85025; 93005; 93010; 93306; 94660; 96361; 96365; 96375; A9503; G0103; J0692; J1644; J1650; J1940; J2270; J2405; J2543; J3490; J7512; J7620; Q9967; S0028